=== PATIENT | male | born 1960 | race Caucasian/White ===

== ENCOUNTER 2018-10-25 11:01 | Outpatient (CLI) | payer OTHER ==
--- NOTE | 2018-10-25 12:55 | RAD ---
LEFT FOOT THREE VIEWS: INDICATIONS: History of gout. Left great toe pain. FINDINGS: There is prominent arthropathy of the first ray. There is mild metatarsus primus varus and hallux va lgus. No evidence of acute fracture. Mild enthesophyte formation is present at the calcaneus. Ther e is mild great toe soft tissue prominence. On the dorsal aspect of the first MTP joint, there is co rtical irregularity, overlying soft tissue prominence, and suggestion of perimarginal erosive change. IMPRESSION: Findings which may relate to marginal erosion at the dorsal aspect of the first metatarsophalangeal j oint with overlying soft tissue prominence. This could relate to gouty arthritis in the correct clin ical context. Imaging followup may be obtained for continued assessment. POS: [facility]
== END 2018-10-25 11:02 | disposition home or self-care (01) ==
LOC: SCSRAD 11:01
PROVIDERS: ATTEND Nurse Practitioner Family
DX: M79.675 Pain in left toe(s) (principal)
CPT/HCPCS: 36415; 84550

== ENCOUNTER 2018-10-30 05:34 | Emergency (ER) | payer OTHER | END 2018-10-30 06:22 | disposition home or self-care (01) | LOC: SCSER 05:34 | DX: S51.012A Laceration without foreign body of left elbow, initial encounter (principal); W19.XXXA Unspecified fall, initial encounter; I10 Essential (primary) hypertension; E78.00 Pure hypercholesterolemia, unspecified; M10.9 Gout, unspecified; Z87.891 Personal history of nicotine dependence | CPT/HCPCS: 12001 ==

== ENCOUNTER 2019-08-01 09:33 | Outpatient (CLI) | payer OTHER ==
[2019-08-01 11:09] LABS: #Basophils 0.1 thou/uL (0.0-0.2); #Eosinphils 0.6 thou/uL (0.0-0.7); #Lymphocytes 3.6 thou/uL (1.20-3.40); #Monocytes 0.8 thou/uL (0.11-0.59); #Neutrophils 4.3 thou/uL (1.40-6.50); %Eosinophils 6.2 % (0.0-10.0); %Lymphocytes 38.4 % (21.0-51.0); %Monocytes 8.7 % (0.0-10.0); %Neutrophils 45.7 % (42.0-75.0); Hemoglobin 16.5 g/dL (14.0-18.0); Mean Corpuscular HGB CONC 34.3 g/dL (32.0-36.0); Mean Corpuscular Hemoglobin 33.4 pg (27.0-31.0); Mean Corpuscular Volume 97.3 fL (78.0-98.0); Mean Platelet Volume 5.6 fL (7.4-10.4); Platelet Count 428 thou/uL (130-400); RBC Distribution Width 11.7 % (11.5-14.5); Red Blood Cell (RBC) Count 4.93 mill/uL (4.70-6.10); White Blood Cell (WBC) Count 9.3 thou/uL (4.8-10.8)
[2019-08-01 11:14] LABS: Bacteria/HPF None Seen HPF (None Seen); Bilirubin Negative (Negative); Blood, Urine Negative (Negative); Clarity Clear (Clear); Glucose, Urine (Dipstick) Normal (Negative); Leukocyte Negative Leu/uL (Negative); Nitrite Negative (Negative); Protein, Urine (Dipstick) Negative (Neg-Trace); RBC/HPF 0-3 HPF (0-3); Squamous Epithelial None Seen HPF (0-3); Urobilinogen Normal mg/dL (Less than 2); WBC/HPF 0-3 HPF (0-3)
--- NOTE | 2019-08-05 10:29 | EKG ---
Test Reason : Blood Pressure : / mmHG Vent. Rate : 062 BPM Atrial Rate : 062 BPM P-R Int : 160 ms QRS Dur : 104 ms QT Int : 404 ms P-R-T Axes : 083 079 062 degrees QTc Int : 410 ms Normal sinus rhythm Normal ECG No previous ECGs available Confirmed by ROSALINA HAMLIN, MARILIN ([id number]) on 08/05/2019 10:29:15 AM Referred By: SABRINA Confirmed By:MARILIN ROMANO MD
== END 2019-08-01 09:34 | disposition home or self-care (01) ==
LOC: LABBT 09:33
PROVIDERS: ATTEND Orthopaedic Surgery Hand Surgery
DX: Z01.818 Encounter for other preprocedural examination (principal); M19.041 Primary osteoarthritis, right hand
CPT/HCPCS: 81001; 85025; 93005; 93010

== ENCOUNTER 2019-08-05 05:38 | Day surgery (SDC) | payer OTHER ==
[2019-08-01 09:53] VITALS: BMI 25.1
[2019-08-05] MEDS ORDERED: Fentanyl 100 MCG/2 ML VIAL ONE ×2 (06:08→06:20)
[2019-08-05] MEDS ORDERED: Midazolam HCl 2 mg/2 ml Vial ONE ×2 (06:08→06:20)
[2019-08-05] MEDS ORDERED: Sodium Chloride 0.9% 10 ML ONE (06:30)
[2019-08-05] MEDS ORDERED: Bupivacaine PF 0.5% 30 ML VIAL ONE (06:30)
[2019-08-05] MEDS ORDERED: Bacitracin Zinc Ointment 30 gm TUBE ONE (06:30)
[2019-08-05] MEDS ORDERED: Betamet Acet/Betamet Na Ph 30 MG/5 ML VIAL ONE (06:31)
[2019-08-05] MEDS ORDERED: Phenylephrine HCL 10 MG/ML VIAL ONE (08:58)
[2019-08-05] MEDS ORDERED: Promethazine HCl 25 MG/ML VIAL ONE (11:18)
--- NOTE | 2019-08-05 19:15 | RAD ---
Right hand 3 views intraoperative fluoroscopy HISTORY: Arthroplasty. Arthritis. FINDINGS: Intraoperative fluoroscopy was provided for internal fixation is performed by Dr. Brown . Spot fluoroscopic images show long wires transfixing the bases of the first and second metacarpals. Fluoroscopy time 31 seconds.
--- NOTE | 2019-08-06 08:29 | OP ---
DATE OF PROCEDURE: 08/05/2019 PREOPERATIVE DIAGNOSIS: Thumb osteoarthritis, stage IV. POSTOPERATIVE DIAGNOSIS: Thumb osteoarthritis, stage IV. FINDINGS: Complete involvement of the STT joint with a distal pole scaphoid superior chondral surface, approximately 40% eroded down to eburnated bone, osteoarthritis on both sides of the trapezium with CMC portion having 80% chondral loss, and the metacarpal base of thumb having approximately 70% chondral loss with osteophytes on both sides of this joint. PROCEDURES PERFORMED: 1. Ligament replacement tendon position, thumb. 2. Flexor carpi radialis harvest with transfer for the ligament replacement tendon position. 3. Trapeziectomy, complete. 4. C-arm supervision. COMPLICATIONS: None. TOURNIQUET TIME: 127 minutes. ESTIMATED BLOOD LOSS: 25 mL. INDICATIONS: Chondral damage listed with stage IV changes, failed conservative treatments including injections, splinting, time, and anti-inflammatories along with chondral building medicine such as Cosamin DS. ANESTHESIA: General LMA technique, augmented by preoperative block anesthesia, infraclavicular and supraclavicular. DESCRIPTION OF PROCEDURE: After successful general endotracheal anesthesia, the limb was prepped and draped. The patient had time-out done and the site, side, and procedure matched the consent in the chart and the prepped area. We outlined the curvilinear J-shaped incision over the base of the thumb, centered over the carpometacarpal joint, beginning just radial to the flexor carpi radialis at the wrist flexion crease. He had a block performed as well. Then, the limb was exsanguinated, tourniquet inflated to 250 mmHg pressure and then we entered the curvilinear incision. We dissected out the skin, the neuro bundles, the cutaneous nerve branches, spared the limb, and dissected them free off the midline. We removed the fascia on the radial aspect of the base of the metacarpal and over the abductor pollicis longus in order to visualize the palmar surface. We then made the arthrotomy just ulnar to the abductor over the carpometacarpal joint, and then dissected radially all the way to the scaphoid portion until we saw the flexor radialis tendon. We then tagged the capsule with a heavy 2-0 Vicryl undyed. Then, we placed a threaded 0.062 K-wire into the trapezium, C-arm confirmed the position in the trapezium only and not in the trapezoid, and then we began 360-degree dissection. After identifying the flexor radialis tendon, we protected it and then opened up the joint completely around the trapezium on both sides with a combination of [place] blade and tenotomy scissors. We lifted it out en josé antonio without complication. It was here that we found the severe osteoarthritis involvement and also the scaphoid was involved as well. We irrigated the area. We then placed a 2 heavy Prolene, 1 deep ulnar in the joint and 1 just deep to the flexor carpi radialis tendon insertion. This would be used later to make the anchovy interpositional graft. We then trimmed all the osteophytes off the base of the thumb metacarpal, we rotated the thumb. Thumb nail was parallel to the palm to identify the lateral wall and dissected free all the soft tissue including the nerve and the tendon off the lateral wall of the thumb metacarpal base. We then beginning 15 mm proximal to the base of the thumb, drilled a 45-degree angle oblique the 2.5 mm drill bit, coming out just perfectly on the ulnar side of the metacarpal at the junction of the chondral surface of the metacarpal base of metaphysis. We then over drilled this to 3.5, used progressive curette to enlarge this, irrigated, and then went to harvest the flexor carpi radialis tendon. One-third a way between the wrist flexion crease in origin, we made 2 cm zigzag cuts down to the tendon, freed the tendon, and then we harvested at the musculotendinous junction. We then cleaned all the muscle, brought this into the wrist joint, saw it was too big, removed 1/3 and then passed this easily through the hole in the metacarpal base. They were from inside, the deep in the joint over the 2nd metacarpal base, from there to the radial side of the tendon to the tunnel on the radial side of the base of the metacarpal underneath the abductor pollicis longus. Under appropriate tension, we then pinned it x1 with a heavy K-wire 0.045 until we had reproduced line, frontal sagittal plane in excellent fashion. We avoided the graft and the whole drill. We then secured it x2 to the thumb metacarpal base, x2 to the abductor pollicis longus, and then x2 to itself and the inside capsule. We then used both the heavy Prolene sutures to weave a double anchovy type suture, buried distal to the joint, and tied it with a heavy Prolene suture. We released the tourniquet. The radiographs had shown excellent position. We bent the wires and cut it after protruded through the skin 5 mm off the suture line and this was appropriate. We obtained hemostasis. We 1st closed the capsule over the interpositional portion of graft with the 2-0 Prolene undyed. We then closed the fascia with the thenar muscle back to the shaft with a heavy 2-0 Vicryl undyed. We established closure on the surgical wounds with a running 4-0 Monocryl at both the wrist and harvest sites, that was excellent. We then placed a Steri-Strips on the wound. There was no evidence of anesthetic or operative complication. A bulky dressing was applied along with a thumb spica splint. The patient left the operating room without evidence of anesthetic or operative complication. Job ID: [id number]
== END 2019-08-05 12:30 | disposition home or self-care (01) ==
LOC: SDC 05:38
PROVIDERS: ATTEND Orthopaedic Surgery Hand Surgery
PROC: 3E0T3BZ Introduction of Anesthetic Agent into Peripheral Nerves and Plexi, Percutaneous Approach (ICD-10-PCS; principal; 2019-08-05)
PROC: 0RQS0ZZ Repair Right Carpometacarpal Joint, Open Approach (ICD-10-PCS; principal; 2019-08-05)
PROC: 0LX70ZZ Transfer Right Hand Tendon, Open Approach (ICD-10-PCS; principal; 2019-08-05)
DX: M18.11 Unilateral primary osteoarthritis of first carpometacarpal joint, right hand (principal); I10 Essential (primary) hypertension; E78.5 Hyperlipidemia, unspecified; M10.9 Gout, unspecified; Z79.899 Other long term (current) drug therapy
CPT/HCPCS: 76000; J0690; J0702; J2250; J2370; J2550; J3010; J3490; S0020

== ENCOUNTER 2024-11-18 09:28 | Outpatient (CLI) | payer OTHER | END 2024-11-18 09:29 | disposition home or self-care (01) | LOC: SCSMRI 09:28 | PROVIDERS: ATTEND Family Medicine | DX: M54.41 Lumbago with sciatica, right side (principal); M48.061 Spinal stenosis, lumbar region without neurogenic claudication; M48.07 Spinal stenosis, lumbosacral region; G54.4 Lumbosacral root disorders, not elsewhere classified; Z98.890 Other specified postprocedural states | CPT/HCPCS: 72148 ==

== ENCOUNTER 2025-10-05 09:01 | Outpatient (CLI) | payer MEDICARE, OTHER | END 2025-10-05 09:02 | disposition home or self-care (01) | LOC: LABBT 09:01 | PROVIDERS: ATTEND Student in an Organized Health Care Education/Training Program | DX: Z01.818 Encounter for other preprocedural examination (principal); M16.11 Unilateral primary osteoarthritis, right hip | CPT/HCPCS: 71046; 80053; 85025; 85610; 86850; 86900; 86901; 87081; 93005; 93010 ==